=== PATIENT | female | born 1940 | race Caucasian/White ===

== ENCOUNTER → 2016-12-23 | Outpatient (CLI) | payer MEDICARE | LOC: KOH-I 10:49 | DX: R42 Dizziness and giddiness (principal) | CPT/HCPCS: 70450 ==

== ENCOUNTER → 2020-09-06 | Day surgery (SDC) | payer MEDICARE ==
[~2020-09-06] MED LIST: DEXAMETHASONE4 MG PO; LISINOPRIL-HCT1 EACH PO; REVLIMID15 MG PO; SIMVASTATIN20 MG PO; VITAMIN B-122500 MCG SL
== END | disposition home or self-care (01) ==
LOC: OR 07:10
PROVIDERS: Internal Medicine Gastroenterology
PROC: 0DBN8ZX Excision of Sigmoid Colon, Via Natural or Artificial Opening Endoscopic, Diagnostic (ICD-10-PCS; 2020-09-06)
PROC: 0DBH8ZX Excision of Cecum, Via Natural or Artificial Opening Endoscopic, Diagnostic (ICD-10-PCS; principal; 2020-09-06 12:30)
DX: D12.0 Benign neoplasm of cecum (principal); D12.5 Benign neoplasm of sigmoid colon; K57.30 Diverticulosis of large intestine without perforation or abscess without bleeding; K64.1 Second degree hemorrhoids; D64.9 Anemia, unspecified; I10 Essential (primary) hypertension; E78.00 Pure hypercholesterolemia, unspecified; E78.5 Hyperlipidemia, unspecified; Z88.5 Allergy status to narcotic agent; E66.8 Other obesity; Z68.37 Body mass index [BMI] 37.0-37.9, adult; Z88.6 Allergy status to analgesic agent; Z79.899 Other long term (current) drug therapy
CPT/HCPCS: J2001; J2704; J7040

== ENCOUNTER 2021-05-21 09:51 | Observation (INO) | payer MEDICARE, OTHER ==
[~2021-05-21] VITALS: Ht 160 cm; Wt 50.8 kg
[~2021-05-21 09:51] MED LIST changes: +REVLIMID10 MG PO; -REVLIMID15 MG PO
[2021-05-21 11:00] LABS: BUN/CREATININE RATIO 19 (0-10)
[2021-05-21 12:03] LABS: HEMOGLOBIN 11.1 gm/dl (12.3-15.3); RED BLOOD COUNT 3.5 M/UL (4.00-5.10); WHITE BLOOD COUNT 7.7 K/UL (4.5-11.0)
[2021-05-21] MEDS ORDERED: ASPIRIN81 MG PO (15:23)
[2021-05-21] MEDS ORDERED: TRAMADOL HCL50 MG PO (15:24)
[2021-05-21] MEDS ORDERED: VITAMIN D21250 MCG PO (15:51)
== END 2021-05-22 18:00 | disposition home or self-care (01) ==
LOC: ER1 09:51 → CDU 14:15 → MED SURG 4 14:15
PROVIDERS: Student in an Organized Health Care Education/Training Program; ADMIT Internal Medicine
DX: M25.511 Pain in right shoulder (principal); M25.512 Pain in left shoulder; R94.31 Abnormal electrocardiogram [ECG] [EKG]; I10 Essential (primary) hypertension; E78.5 Hyperlipidemia, unspecified; C90.00 Multiple myeloma not having achieved remission; Z82.49 Family history of ischemic heart disease and other diseases of the circulatory system; Z20.822 Contact with and (suspected) exposure to COVID-19; Z90.49 Acquired absence of other specified parts of digestive tract; Z90.710 Acquired absence of both cervix and uterus; Z79.82 Long term (current) use of aspirin; Z79.891 Long term (current) use of opiate analgesic; Z79.899 Other long term (current) drug therapy
CPT/HCPCS: ECHO; 36415; 71045; 71275; 80053; 80061; 82550; 82553; 83735; 83874; 84132; 84484; 85025; 85379; 93005; 93306; 96365; 96372; 99285; G0378; J1650; J3475; Q9967; U0002

== ENCOUNTER 2021-11-05 18:47 | Inpatient (IN) | payer MEDICARE ==
[~2021-11-05] VITALS: Ht 157.5 cm; Wt 47.6 kg
[~2021-11-05 18:47] MED LIST changes: +ASPIRIN81 MG PO; +TRAMADOL HCL50 MG PO; +VITAMIN D21250 MCG PO
[2021-11-05 20:00] LABS: HEMOGLOBIN 10.2 gm/dl (12.3-15.3); RED BLOOD COUNT 3.07 M/UL (4.00-5.10)
[2021-11-05 20:21] LABS: WHITE BLOOD COUNT 0.8 K/UL (4.5-11.0)
[2021-11-05 20:27] LABS: BUN/CREATININE RATIO 33 (0-10)
[2021-11-06 06:54] LABS: RED BLOOD COUNT 2.73 M/UL (4.00-5.10)
[2021-11-06 06:56] LABS: WHITE BLOOD COUNT 1.3 K/UL (4.5-11.0)
[2021-11-06 07:26] LABS: BUN/CREATININE RATIO 23 (0-10)
[2021-11-06] MEDS ORDERED: ACYCLOVIR400 MG PO (11:33)
[2021-11-06] MEDS ORDERED: LISINOPRIL10 MG PO (11:35)
[2021-11-06] MEDS ORDERED: ONDANSETRON ODT8 MG PO (11:39)
[2021-11-07 01:59] LABS: HEMOGLOBIN 8.7 gm/dl (12.3-15.3); RED BLOOD COUNT 2.64 M/UL (4.00-5.10)
[2021-11-07 02:00] LABS: WHITE BLOOD COUNT 2.6 K/UL (4.5-11.0)
[2021-11-07 02:24] LABS: BUN/CREATININE RATIO 20 (0-10)
[2021-11-08 02:20] LABS: HEMOGLOBIN 8.4 gm/dl (12.3-15.3); RED BLOOD COUNT 2.55 M/UL (4.00-5.10)
[2021-11-08 02:32] LABS: WHITE BLOOD COUNT 4.2 K/UL (4.5-11.0)
[2021-11-08 02:33] LABS: BUN/CREATININE RATIO 24 (0-10)
[2021-11-09 04:49] LABS: HEMOGLOBIN 8.5 gm/dl (12.3-15.3); RED BLOOD COUNT 2.56 M/UL (4.00-5.10); WHITE BLOOD COUNT 3.6 K/UL (4.5-11.0)
[2021-11-09 05:31] LABS: BUN/CREATININE RATIO 31 (0-10)
[2021-11-10 04:12] LABS: HEMOGLOBIN 8.8 gm/dl (12.3-15.3); RED BLOOD COUNT 2.64 M/UL (4.00-5.10)
[2021-11-10 04:35] LABS: BUN/CREATININE RATIO 29 (0-10)
[2021-11-10 05:10] LABS: WHITE BLOOD COUNT 2.5 K/UL (4.5-11.0)
[2021-11-11 04:34] LABS: HEMOGLOBIN 8.7 gm/dl (12.3-15.3); RED BLOOD COUNT 2.63 M/UL (4.00-5.10); WHITE BLOOD COUNT 2.7 K/UL (4.5-11.0)
[2021-11-11 04:56] LABS: BUN/CREATININE RATIO 25 (0-10)
[2021-11-11] MEDS ORDERED: PROTONIX 40 MG40 M1 PO ×2 (14:50→15:52)
[2021-11-11] MEDS ORDERED: CLEOCIN VAGINAL40 GM PV (14:50)
[2021-11-11] MEDS ORDERED: VITAMIN B-121000 MC3 PO (14:50)
[2021-11-11] MEDS ORDERED: FLORANEX GRANU1 EACH PO (14:50)
[2021-11-11] MEDS ORDERED: K-TAB ER20 MEQ PO (15:42)
[2021-11-11] MEDS ORDERED: MAGNESIUM400 M2 PO (15:42)
[2021-11-11] MEDS ORDERED: PHOS-NAK PACKET1 EA PO (15:42)
[2021-11-11] MEDS ORDERED: DOXYCYCLINE HY100 M2 PO (15:52)
[2021-11-11] MEDS ORDERED: LASIX TAB 20 MG20 MG PO (15:57)
[2021-11-11] MEDS ORDERED: AMOX TR-K CLV1 EAC4 PO (17:48)
== END 2021-11-11 18:00 | disposition home health service (06) | DRG 871 ==
LOC: ER1 18:47 → CDU 22:04 → PROG CARE 22:04
PROVIDERS: Emergency Medicine; Internal Medicine; Internal Medicine Hematology & Oncology; Registered Nurse; ADMIT Internal Medicine
DX: A41.9 Sepsis, unspecified organism (principal); J69.0 Pneumonitis due to inhalation of food and vomit; Z20.822 Contact with and (suspected) exposure to COVID-19; G93.41 Metabolic encephalopathy; E43 Unspecified severe protein-calorie malnutrition; J10.00 Influenza due to other identified influenza virus with unspecified type of pneumonia; C90.00 Multiple myeloma not having achieved remission; N30.00 Acute cystitis without hematuria; D61.818 Other pancytopenia; E87.1 Hypo-osmolality and hyponatremia; D84.9 Immunodeficiency, unspecified; Z68.1 Body mass index [BMI] 19.9 or less, adult; B96.20 Unspecified Escherichia coli [E. coli] as the cause of diseases classified elsewhere; I10 Essential (primary) hypertension; E86.0 Dehydration; E87.6 Hypokalemia; D69.6 Thrombocytopenia, unspecified; E83.42 Hypomagnesemia; E83.39 Other disorders of phosphorus metabolism; E53.8 Deficiency of other specified B group vitamins; R33.8 Other retention of urine; R53.81 Other malaise; N28.1 Cyst of kidney, acquired; E78.5 Hyperlipidemia, unspecified; Z90.49 Acquired absence of other specified parts of digestive tract; Z90.710 Acquired absence of both cervix and uterus; Z82.49 Family history of ischemic heart disease and other diseases of the circulatory system; Z88.8 Allergy status to other drugs, medicaments and biological substances
CPT/HCPCS: 0241U; 36415; 51702; 70450; 71045; 71046; 80048; 80053; 80202; 80307; 81001; 82140; 82550; 82553; 82746; 83036; 83540; 83550; 83605; 83735; 84100; 84132; 84439; 84443; 84484; 85025; 85027; 85049; 85610; 86140; 87040; 87077; 87086; 87186; 93005; 94760; 96365; 97116-GP-CQ; 97162; 97530-GP-CQ; 99285; C9113; J0692; J1442; J1940; J2185; J3370; J3475; J3480; J7030; J7070